=== PATIENT | female | born 2000 | race Caucasian/White ===

== ENCOUNTER 2023-08-13 07:39 | Emergency (ER) | payer BC, SELFPAY ==
[2023-08-13 07:42] VITALS: BP 115/77; PULSE 116; RESP 20; TEMP 37.7; O2SAT 100
--- NOTE | 2023-08-13 07:45 | RT.EKG_ITS ---
APPROVED REPORT Exam: Resting ECG Reason for Exam: chest pain Patient Location: E HR:106 bpm ECG Measurements Heart Rate 106 AXIS NC 143 P 60 QRSd 75 QRS 62 QT 302 T 45 QTc 402 Conclusion Sinus tachycardia. 106 no stemi
--- NOTE | 2023-08-13 08:06 | ED.GENADUL_ITS ---
Discharge Plan Disposition Patient Disposition: Home Condition: Good Discharge Details Clinical Impression: Influenza A Primary Care Provider: Lori Jackson ED Provider: Sudha Hernadez Discharge Instructions Instructions: H1N1 Influenza (ED) Additional Instructions: You are positive for influenza A, this fits with your history and exam. Please encourage hydration. You may use Tylenol and/or Ibuprofen as needed for discomfort. Please wash your hands, try to prevent spread and stay away from people that are increased risk for complications. If you are not able to stay hydrated, shortness of breath or other new/worsening symptoms please seek care u rgently once again. Otherwise, please follow-up with primary care in 2 weeks for reevaluation. Referrals: Lori Jackson [Primary Care Provider] - HPI General Date/Time Provider Initiated Documentation: 08/13/23 08:06 . Limitations to Documentation: no limitations . Information obtained by: patient, family (mom) and RN notes reviewed . History of Present Illness 23 year old F presents to the emergency department with the chief complaint of Cough, congestion, sore throat, nausea, described as moderate, Quality is described as aching (Diffuse body aches), Patient started experiencing this day(s) (Began yesterday morning) and it has been constant. No relieving factors improve symptom(s), No exacerbating factors reported . Patient notes cough, fever/chills, loss of appetite, malaise and n ausea/vomiting (Nausea, no vomiting); denies chest pain, rash and shortness of breath (Feels like she is not able to cough up everything she needs). Patient did receive the following treatments prior to arrival, none Related Data Allergies Allergy/AdvReac Type Severity Reaction Status Date / Time Penicillins AdvReac Unknown Other (See Verified 08/13/23 07:45 Comment) General Stated Complaint: SOB INOCENCIA: 3 Review of Systems Constitutional Constitutional: Reports as per HPI and Denies headache(s) Eyes Eyes: Reports as per HPI and Denies irritation ENT Ears, Nose, Mouth, and Throat: Reports as per HPI and Denies headache(s) Cardiovascular Cardiovascular: Reports as per HPI, Denies chest pain and Denies dyspnea Respiratory Respiratory: Reports as per HPI and Denies dyspnea Gastrointestinal Gastrointestinal: Reports as per HPI, Denies abdominal pain, Denies change in bowel habits and Denies vomiting Integumentary/Breasts Skin/Breast: Reports as per HPI and Denies rash Neurologic Neurologic: Reports as per HPI and Denies headache(s) Exam Const General: cooperative, healthy appearing, comfortable, no acute distress, well developed and well groomed Nutritional Appearance: average body habitus and well nourished Orientation: alert and awake Other: warm, febrile [facility] Head: normal to inspection, normocephalic and atraumatic Ears: hearing grossly normal bilaterally, external ears normal and TM's normal bilaterally General nose exam: external nose normal and nares normal Face and sinus: normal facial exam, sinuses nontender and face symmetric Mouth: oral mucosae normal, lip normal, tongue normal, oropharynx normal and moist mucous membranes Teeth and gingiva: dentition normal Throat: posterior oropharynx normal, tonsils normal and uvula midline Eyes General: appearance normal, both eyes and all related structures Neck Neck: normal visual inspection, full ROM, no lymphadenopathy and no meningeal signs Resp Effort & Inspection: normal respiratory effort, able to speak in complete sentences and no respiratory distress Auscultation: clear to auscultation bilaterally, no rales, no rhonchi and no wheezes Cardio Rate: tachycardic Rhythm: regular rhythm Heart Sounds: S1 normal and S2 normal Skin General skin exam: no rashes or lesions noted Neuro General: patient alert and patient awake Cognition: normal cognition Speech: speech normal Gait: normal gait Psych Appearance: grossly normal and well kempt Mental Status: mental status grossly normal Speech and Movement: speech and movement normal Course Vital Signs Vital signs: Vital Signs Temperature 37.7 C H 08/13/23 07:42 Pulse 116 H 08/13/23 07:42 Respiratory Rate 20 08/13/23 07:42 Blood Pressure 115/77 08/13/23 07:42 Pulse Oximetry 100 08/13/23 07:42 Temperature 37.7 C H 08/13/23 07:42 Temperature Source Temporal Artery Scan 08/13/23 07:42 Pulse 116 H 08/13/23 07:42 Respiratory Rate 20 08/13/23 07:42 Blood Pressure 115/77 08/13/23 07:42 Pulse Oximetry 100 08/13/23 07:42 Medical Decision Making Patient is a pleasant and otherwise healthy 23-year-old female, brought in by her mother, with chief complaint of cough, congestion, body aches, fever, sore throat. She reports that this began around 10 AM yesterday. She reports that she did receive her flu shot this year. She reports that she has been around somebody that had RSV. Has had some nausea, no vomiting. Denies any diarrhea or constipation. She reports that she feels like she needs to cough something up and is unable to do so. No history of asthma or other respiratory illness. Has not taken anything today for her discomfort. On exam, patient appears nontoxic. She does have a low-grade temp. Tachycardic, patient has been hydrating orally, questioning if this is associated with the fever. Lungs are clear. HEENT exam is benign. No focal abdominal pain on exam. Patient reports that she has an IUD. Her history and exam is most consistent with viral etiology. No focal consolidations on auscultation of the lungs. With sick contacts, her myriad of symptoms, more consistent with viral etiology than something such as pulmonary embolism. No significant past family history. ECG was reviewed, patient is noted to be tachycardic but no evidence of ischemic patterns. Again, tachycardia likely associated with fever. At this point, I do not feel that imaging or blood work is warranted. Will ensure patient is able to hydrate orally. Will give Tylenol, ibuprofen, or hydrate orally. Will test her for flu, COVID, RSV and strep. Patient declined ibuprofen. Temp now WNL, HR downtrending. Results pending. Patient positive for influenza A. She is hydrating orally, continues to have some bodyaches but overall improved. We discussed expected course. We discussed the use of Tamiflu and patient declines. She is otherwise healthy and low risk for complications. We did discuss potential complications and when to seek care urgently once again. Encouraged follow-up care. All questions and concerns were addressed and she is in agreement this plan. Declined work note. Quality:SDOH Health Related Social Needs: No Data to Display PFSH All Active Problems (Updated 08/13/23 @ 09:27 by PARI Dawson) Influenza A (Acute) Social History Smoking/Tobacco Use Status: Never Smoking risk assessment performed?: Yes
[2023-08-13] MEDS: Acetaminophen 500 MG TAB (08:25)
[2023-08-13 08:28] VITALS: BP 115/77; PULSE 116; RESP 20; TEMP 37.7; O2SAT 100
[2023-08-13 08:48] VITALS: BP 104/68; PULSE 93; O2SAT 98
[2023-08-13 08:56] VITALS: TEMP 37
[2023-08-13 09:16] LABS: COVID-19 PCR Negative (Negative); Influenza A PCR Positive (Negative); Influenza B PCR Negative (Negative); RSV PCR Negative (Negative)
[2023-08-13 09:20] LABS: Source Nasopharynx
[2023-08-13 09:49] VITALS: BP 104/68; PULSE 93; RESP 20; TEMP 37; O2SAT 98
== END 2023-08-13 09:49 | disposition home or self-care (01) ==
PROVIDERS: Emergency Provider Physician Assistant; PCP Nurse Practitioner Adult Health
DX: J10.1 Influenza due to other identified influenza virus with other respiratory manifestations (principal); R00.1 Bradycardia, unspecified
CPT/HCPCS: 87637; 87880; 93005; 99284; 87081; 93010; 99283